=== PATIENT | female | born 1970 | race Caucasian/White ===

== ENCOUNTER → 2016-10-03 | Day surgery (SDC) | payer OTHER ==
[~2016-10-03] VITALS: Ht 165.1 cm; Wt 88.9 kg
[~2016-10-03] MED LIST: ALBUTEROL0.09 MG/A2 IH; ATIVAN2 MG PO; CELEXA40 MG PO; DAYPRO600 M1 PO; DELTASONE5 MG PO; DULER200 INH; DUONEB 3 MG/3 ML3 M1 INH; EFFEXOR XR150 MG PO; FLEXERIL10 MG PO; FLONASE ALLERG9.9 ML NS; HYCODAN 1.5 MG480 M1 PO; HYDROCODONE BIT1 T11 PO; KEFLEX250 MG PO; METICORTEN1 MG PO; MOTRIN800 MG PO; NEURONTIN100 MG PO; PREDNISONE50 MG PO; ROBAXIN750 MG PO; SINGULAIR10 MG PO; SYMBICORT1 AE1 IH; VIBRAMYCIN100 MG PO; VICODIN 500 MG-1 TAB PO; WELLBUTRIN XL300 MG PO; ZANTAC150 MG PO; ZOFRAN ODT4 MG SL
--- NOTE | ~2016-10-03 | O ---
[place], [place] OPERATIVE NOTE NAME: SAMMIE PINK [facility] #: [id number] UNIT #: [id number] ROOM: DOCTOR: MALAIKA WHITMORE MD BIRTHDATE: [birth year] DOS: 10/03/2016 PREOPERATIVE DIAGNOSES: Right shoulder and back soft tissue masses. POSTOPERATIVE DIAGNOSES: Right shoulder and back soft tissue masses. PROCEDURE: Excision of right shoulder and back soft tissue masses. SURGEON: Malaika Whitmore MD PROOFER: MS3. ANESTHESIA: Local (approximately 20 mL of 1% plain lidocaine). INDICATIONS: This is a 45-year-old lady with a history of an enlarging right shoulder and back masses, who is here for the above-mentioned procedure. The procedure and its complications were explained to the patient in detail preoperatively. Complications that were discussed included but were not limited to, bleeding, infection and recurrence. She agreed to proceed. DESCRIPTION OF PROCEDURE: After identifying the patient, the patient was brought to the operating suite and laid in the left lateral position. The parts were painted and draped in the usual sterile fashion. A time-out procedure was called. Incisions were marked and local anesthesia (1% plain lidocaine) was injected in the line of the incision. The right shoulder mass was dealt with first. An incision was made in the long access of the mass. The skin and the subcutaneous tissue were incised. The mass was grasped with the help of Allis forceps, and it was excised in its entirety and sent for histopathological diagnosis. The size of this mass was approximately 2 x 3 cm. Hemostasis was achieved with the help of electrocautery. Thereafter, the subcutaneous tissue was approximated with the help of 3-0 Vicryl in interrupted fashion and the skin edges were approximated with the help of 4-0 Vicryl in a subcuticular running fashion. A dressing was placed. Thereafter, the incision was marked in the region of the back mass and local anesthesia was infiltrated. An elliptical incision was made in the skin, and the subcutaneous tissue was incised in the line of the incision. The mass was grasped with the help of an Allis forceps, and it was then excised in its entirety and sent for histopathological diagnosis. Hemostasis was achieved. Thereafter, the subcutaneous tissue was approximated with the help of 3-0 Vicryl, and the skin edges were approximated with the help of 4-0 Vicryl in a subcuticular running fashion. Dressing was given. The patient tolerated the procedure well and was brought to the recovery room in stable fashion. Dr. Malaika Whitmore, the attending surgeon, was present throughout the operating case. [place], [place] OPERATIVE NOTE NAME: PINKSAMMIE D UNIT #: [id number] ROOM: DOCTOR: MALAIKA WHITMORE MD BIRTHDATE: [birth year] Malaika Whitmore MD CM:OPRECORD:OPERATIVE NOTE [id number] MALAIKA WHITMORE MD 10/03/16 1125 interface
== END | disposition home or self-care (01) ==
LOC: SDC 10-02 12:30
DX: D17.1 Benign lipomatous neoplasm of skin and subcutaneous tissue of trunk (principal); L72.0 Epidermal cyst; J44.9 Chronic obstructive pulmonary disease, unspecified; J45.909 Unspecified asthma, uncomplicated; F41.9 Anxiety disorder, unspecified; F32.9 Major depressive disorder, single episode, unspecified; M79.7 Fibromyalgia; Z86.14 Personal history of Methicillin resistant Staphylococcus aureus infection; F17.210 Nicotine dependence, cigarettes, uncomplicated

== ENCOUNTER → 2016-12-28 | Outpatient (CLI) | payer OTHER | END | disposition home or self-care (01) | LOC: RAD 12:34 | DX: M25.562 Pain in left knee (principal); M25.561 Pain in right knee ==

== ENCOUNTER → 2017-01-10 | Outpatient (CLI) | payer OTHER | END | disposition home or self-care (01) | LOC: US 15:55 | DX: M25.862 Other specified joint disorders, left knee (principal); R22.42 Localized swelling, mass and lump, left lower limb ==

== ENCOUNTER → 2017-02-18 | Outpatient (CLI) | payer OTHER | END | disposition home or self-care (01) | LOC: MRI 08:00 | DX: M79.9 Soft tissue disorder, unspecified (principal); M17.12 Unilateral primary osteoarthritis, left knee; M25.862 Other specified joint disorders, left knee; Z85.828 Personal history of other malignant neoplasm of skin ==

== ENCOUNTER 2017-05-13 20:03 | Emergency (ER) | payer OTHER ==
[~2017-05-13] VITALS: Ht 165.1 cm; Wt 89.8 kg
--- NOTE | ~2017-05-13 | EKG ---
[place], [place] ELECTROCARDIOGRAM REPORT NAME: SAMMIE PINK UNIT #: [id number] ROOM: DOCTOR: RAE HARRIS MD BIRTHDATE: [birth year] DOS: 05/13/2017 TIME: 2006 hours. Sinus tachycardia at 110 beats per minute. Possible old anterior wall myocardial infarction. An abnormal ECG. The abnormality may be due to lead misplacement. No previous tracing is available for comparison. RAE HARRIS MD CM:EKGRPT:ELECTROCARDIOGRAM REPORT [id number] RAE HARRIS MD
--- NOTE | ~2017-05-13 | EKG ---
[place], [place] ELECTROCARDIOGRAM REPORT NAME: SAMMIE PINK UNIT #: [id number] ROOM: DOCTOR: RAE HARRIS MD BIRTHDATE: [birth year] DOS: 05/13/2017 TIME: 2208 hours. Normal sinus rhythm at 95 beats per minute. The tracing is within normal limits. When compared with an ECG done a couple of hours earlier QRS progression appears to be normal, indicating the first ECG had misplaced leads. RAE HARRIS MD CM:EKGRPT:ELECTROCARDIOGRAM REPORT [id number] RAE HARRIS MD
[2017-05-13 20:21] LABS: BASO # 0.1 10*3/uL (0.0-0.1); BASO % 0.9 % (0.0-1.0); EOS # 0.3 10*3/uL (0.0-0.4); EOS % 2.3 % (1.0-4.0); HEMATOCRIT 45.9 % (37.0-47.0); HEMOGLOBIN 15.9 g/dl (12.0-16.0); LYMPH # 3.2 10*3/uL (1.3-4.4); LYMPH % 28.7 % (27.0-41.0); MEAN CELL VOLUME 93.7 fl (81.0-99.0); MEAN CORPUSCULAR HGB 32.4 pg (27.0-31.0); MEAN CORPUSCULAR HGB CONC 34.6 g/dl (33.0-37.0); MEAN PLATELET VOLUME 8.5 fl (9.6-12.3); MONO # 0.7 10*3/uL (0.1-1.0); MONO % 6.4 % (3.0-9.0); NEUT # 6.9 10*3/uL (2.3-7.9); NEUT % 61.4 % (47.0-73.0); PLATELET COUNT AUTOMATED 449 10*3/uL (130-400); RED CELL DISTRI WIDTH 12.4 % (0-14.5); WHITE BLOOD COUNT 11.2 10*3/uL (4.8-10.8)
[2017-05-13 20:34] LABS: ACT PARTIAL THROMBO TIME 25.1 SECONDS (20.8-31.5); INTERNATIONAL NORM RATIO 0.9 (2.0-3.5)
[2017-05-13 20:37] LABS: ALBUMIN 3.9 gm/dl (3.1-4.5); ALKALINE PHOSPHATASE 104 U/L (45-117); BUN 15 mg/dl (7-24); CHLORIDE 102 mmol/L (98-107); CREATININE 0.92 mg/dL (0.55-1.02); MAGNESIUM 2.3 mg/dL (1.5-2.1); SGOT/AST 25 IU/L (3-35); SGPT/ALT 27 U/L (12-78); SODIUM 139 mmol/L (136-145); TOTAL PROTEIN 7.9 gm/dL (6.4-8.2)
[2017-05-13 20:38] LABS: TROPONIN I < 0.015 ng/ml (<0.045)
[2017-05-13 20:44] LABS: URINE AMPHETAMINES < 1000 (1000ng/ml); URINE BARBITURATES < 200 (200ng/ml); URINE BENZODIAZEPINES < 200 (200ng/ml); URINE CANNABINOIDS (THC) < 50 (50ng/ml); URINE COCAINE < 300 (300ng/ml); URINE METHADONE < 300 (300ng/ml); URINE OPIATES > 300 (300ng/ml)
[2017-05-13 20:45] LABS: URINE PHENCYCLIDINE < 25 (25ng/ml)
== END 2017-05-13 23:34 | disposition home or self-care (01) ==
LOC: ED 20:03
PROVIDERS: Emergency Medicine Emergency Medical Services
DX: R07.89 Other chest pain (principal); R00.2 Palpitations; J44.9 Chronic obstructive pulmonary disease, unspecified; M79.7 Fibromyalgia; Z98.890 Other specified postprocedural states; Z90.49 Acquired absence of other specified parts of digestive tract

== ENCOUNTER → 2017-05-22 | Outpatient (CLI) | payer OTHER ==
--- NOTE | ~2017-05-22 | HM ---
[place], [place] HOLTER MONITOR REPORT [facility] [id number] UNIT #: [id number] ROOM: DOCTOR: LEESA BENJAMIN MD BIRTHDATE: [birth year] DOS: 05/22/2017 The study was recorded on 05/22/2017, the recording was analyzed on 05/23/2017, interpreted on 05/23/2017, and dictated on 05/23/2017. INDICATIONS: Tachycardia, chest discomfort. FINDINGS: The patient was studied for 24 hours utilizing a Holter monitor. Underlying rhythm was normal sinus with periods of sinus tachycardia. The average heart rate was 96. Heart rate in sinus rhythm varied from 67-141 beats per minute. No premature ventricular contractions were recorded. There was no ventricular tachycardia. Rare premature atrial contractions were recorded. A single 7 beat run of SVT at a rate of 128 was seen. There were no prolonged pauses. The patient submitted a diary indicated that she had shortness of breath and a little bit of chest pain on 2 occasions. She was in sinus tachycardia with a rate of about 110 at those times. No arrhythmias were documented. It also indicated that she was dizzy and fell hitting her head on 4 occasions. During these events, she was in sinus rhythm with a rate of about 90, again no arrhythmias were recorded. IMPRESSION: 1. Normal sinus rhythm and sinus tachycardia. Average heart rate is relatively high at 96 beats per minute. 2. A single 7 beat run of SVT was recorded, but had no symptoms. The patient experienced this at 6:49 a.m. 3. The patient did not have any significant arrhythmias during symptoms of chest discomfort, dyspnea, lightheadedness or falling. LEESA BENJAMIN MD CM:HOLTER:HOLTER MONITOR REPORT [id number] LEESA BENJAMIN MD
== END | disposition home or self-care (01) ==
LOC: CARD 09:30
DX: R00.0 Tachycardia, unspecified (principal); R00.2 Palpitations

== ENCOUNTER → 2017-06-27 | Outpatient (CLI) | payer OTHER ==
[~2017-06-27] MED LIST changes: +ATIVAN1 MG PO; +BACLOFEN20 M1 PO; +CLARITIN10 MG PO; +INCRUSE ELLI62.5 MCG INH; +OMEPRAZOLE40 MG PO; +SINGULAIR10 M1 PO; +VISTARIL25 MG PO
--- NOTE | ~2017-06-27 | ST ---
[place], [place] EXERCISE STRESS TEST REPORT [id number] UNIT #: [id number] ROOM: DOCTOR: QUIANA NUÑEZ MD BIRTHDATE: [birth year] DOS: 06/27/2017 INDICATION: Symptomatic palpitation and chest pain. PROCEDURE: The patient was exercised on treadmill using Sai protocol, the patient exercised for 9 minutes reaching 85% of her maximum predicted heart rate. Maximum workload was 11 mets. Test was terminated due to achieving target heart rate. No complaint of chest pain, chest pressure, heaviness or tightness. BLOOD PRESSURE RESPONSE: The resting blood pressure 122/80 with ending blood pressure 170/68. ELECTROCARDIOGRAM INTERPRETATION: Resting electrocardiogram showed normal sinus rhythm. There is poor R progression. At the peak of the stress test, there was no evidence of any significant ST or T-wave changes suggestive of myocardial ischemia. No arrhythmias were noted. SUMMARY: 1. Adequate stress test with good functional capacity. 2. Negative treadmill stress test for stress induced myocardial ischemia. 3. No arrhythmias were noted. 4. Nuclear images will be reported separately. QUIANA NUÑEZ MD CM:STRESS:EXERCISE STRESS TEST REPORT [id number] QUIANA NUÑEZ MD
--- NOTE | 2017-06-27 10:05 | NUR ---
INFORMED SIGNED CONSENT OBTAINED FOR CGXT WITH DR NUÑEZ. RESTING EKG NSR HR 72 BP 122/80 IN SUPINE POSTION, STANDING HR 78 BP 126/78. PT COMPLETED 9:00 OF A GUZMAN PROTOCOL WITH COMPLETION OF STAGE III. PT REACHED A PEAK HR OF 151 WHICH REPRESENTS 85% OF PREDICTED MAXIMUM AND A PEAK BP OF 170/68. NO ARRHYTHMIAS NOTED. NON DIAGNOSITC ST CHANGES SEEN. PT C/O HEAD PRESSURE AND SOB. LAST RECOVERY HR 104 BP 140/72. PT IN STABLE CONDITION, AWAITING NUCLEAR IMAGES.
== END | disposition home or self-care (01) ==
LOC: CARD 06-20 08:30
DX: I49.9 Cardiac arrhythmia, unspecified (principal); I47.1 Supraventricular tachycardia; R94.31 Abnormal electrocardiogram [ECG] [EKG]; R42 Dizziness and giddiness

== ENCOUNTER → 2017-10-09 | Outpatient (CLI) | payer OTHER | END | disposition home or self-care (01) | LOC: US 10-08 13:00 → MAMMO 13:56 | DX: Z12.39 Encounter for other screening for malignant neoplasm of breast (principal); N92.6 Irregular menstruation, unspecified ==

== ENCOUNTER → 2017-10-15 | Outpatient (CLI) | payer OTHER | END | disposition home or self-care (01) | LOC: ORTHO 01:25 | DX: M06.861 Other specified rheumatoid arthritis, right knee (principal) ==

== ENCOUNTER → 2017-10-30 | Outpatient (CLI) | payer OTHER ==
[~2017-10-30] MED LIST changes: +CYCLOBENZAPRINE5 M3 PO
[2017-10-30 11:12] LABS: BASO # 0.1 10*3/uL (0.0-0.1); EOS # 0.2 10*3/uL (0.0-0.4); EOS % 2.5 % (1.0-4.0); HEMATOCRIT 42.8 % (37.0-47.0); HEMOGLOBIN 14.6 g/dl (12.0-16.0); LYMPH # 2.5 10*3/uL (1.3-4.4); LYMPH % 32.5 % (27.0-41.0); MEAN CELL VOLUME 94.1 fl (81.0-99.0); MEAN CORPUSCULAR HGB 32.1 pg (27.0-31.0); MEAN CORPUSCULAR HGB CONC 34.1 g/dl (33.0-37.0); MEAN PLATELET VOLUME 8.6 fl (9.6-12.3); MONO # 0.6 10*3/uL (0.1-1.0); MONO % 7.1 % (3.0-9.0); NEUT # 4.4 10*3/uL (2.3-7.9); NEUT % 56.8 % (47.0-73.0); PLATELET COUNT AUTOMATED 374 10*3/uL (130-400); RED BLOOD COUNT 4.55 10*6/uL (4.10-5.10); RED CELL DISTRI WIDTH 12.5 % (0-14.5); WHITE BLOOD COUNT 7.7 10*3/uL (4.8-10.8)
[2017-10-30 11:20] LABS: BILIRUBIN NEGATIVE (NEGATIVE); BLOOD NEGATIVE (NEGATIVE); CLARITY CLEAR (CLEAR); COLOR YELLOW (YELLOW); GLUCOSE NEGATIVE (NEGATIVE); KETONE NEGATIVE (NEGATIVE); LEUKO ESTERASE NEGATIVE (NEGATIVE); NITRITE NEGATIVE (NEGATIVE); PH 5.5 (5.0-9.0); UROBILINOGEN 0.2 E.U./dl (0.2-1.0)
[2017-10-30 11:28] LABS: BACTERIA 1+; WBC 0-2 wbc/hpf (0-5)
[2017-10-30 11:37] LABS: BUN 14 mg/dl (7-24); CHLORIDE 107 mmol/L (98-107); CREATININE 0.94 mg/dL (0.55-1.02); POTASSIUM 4.1 mmol/L (3.5-5.1); SODIUM 139 mmol/L (136-145)
== END | disposition home or self-care (01) ==
LOC: LAB 09:37
PROVIDERS: Orthopaedic Surgery
DX: S81.012A Laceration without foreign body, left knee, initial encounter (principal); M22.42 Chondromalacia patellae, left knee; X58.XXXA Exposure to other specified factors, initial encounter; Y92.89 Other specified places as the place of occurrence of the external cause; Y93.89 Activity, other specified; Y99.8 Other external cause status

== ENCOUNTER → 2017-11-06 | Day surgery (SDC) | payer OTHER ==
[~2017-11-06] VITALS: Ht 165.1 cm; Wt 89.8 kg
[2017-11-06] VITALS (7 sets, daily range): BP systolic 103–132; BP diastolic 44–78
[~2017-11-06] MED LIST changes: +Percocet 325 MG1 TAB PO; +ZOFRAN4 MG PO
== END | disposition home or self-care (01) ==
LOC: SDC 10-30 09:30
DX: S83.242A Other tear of medial meniscus, current injury, left knee, initial encounter (principal); M94.262 Chondromalacia, left knee; F17.210 Nicotine dependence, cigarettes, uncomplicated; J44.9 Chronic obstructive pulmonary disease, unspecified; F41.9 Anxiety disorder, unspecified; F32.9 Major depressive disorder, single episode, unspecified; Z86.14 Personal history of Methicillin resistant Staphylococcus aureus infection; Z90.49 Acquired absence of other specified parts of digestive tract; Z82.49 Family history of ischemic heart disease and other diseases of the circulatory system; X58.XXXA Exposure to other specified factors, initial encounter; Y93.89 Activity, other specified; Y92.89 Other specified places as the place of occurrence of the external cause; Y99.8 Other external cause status

== ENCOUNTER → 2017-12-24 | Outpatient (CLI) | payer OTHER | END | disposition home or self-care (01) | LOC: RAD 15:32 | DX: M79.672 Pain in left foot (principal) ==

== ENCOUNTER → 2018-07-20 | Outpatient (CLI) | payer OTHER ==
[~2018-07-20] MED LIST changes: +ANAPROX DS550 MG PO
== END | disposition home or self-care (01) ==
LOC: US 15:00
DX: R14.0 Abdominal distension (gaseous) (principal)

== ENCOUNTER → 2018-08-24 | Outpatient (CLI) | payer OTHER | END | disposition home or self-care (01) | LOC: MRI 13:56 | DX: S83.206A Unspecified tear of unspecified meniscus, current injury, right knee, initial encounter (principal); M25.861 Other specified joint disorders, right knee; R60.0 Localized edema; X58.XXXA Exposure to other specified factors, initial encounter; Y93.89 Activity, other specified; Y92.89 Other specified places as the place of occurrence of the external cause; Y99.8 Other external cause status ==

== ENCOUNTER → 2018-10-29 | Outpatient (CLI) | payer OTHER | END | disposition home or self-care (01) | LOC: CT 10:00 | DX: J34.1 Cyst and mucocele of nose and nasal sinus (principal) ==

== ENCOUNTER → 2019-07-23 | Outpatient (CLI) | payer OTHER ==
[2019-07-23 15:00] LABS: BASO # 0.1 10*3/uL (0.0-0.1); BASO % 1.2 % (0.0-1.0); EOS # 0.2 10*3/uL (0.0-0.4); HEMATOCRIT 47.5 % (37.0-47.0); HEMOGLOBIN 15.9 g/dl (12.0-16.0); LYMPH # 2.6 10*3/uL (1.3-4.4); LYMPH % 28.5 % (27.0-41.0); MEAN CELL VOLUME 97.1 fl (81.0-99.0); MEAN CORPUSCULAR HGB 32.5 pg (27.0-31.0); MEAN CORPUSCULAR HGB CONC 33.5 g/dl (33.0-37.0); MEAN PLATELET VOLUME 9.1 fl (9.6-12.3); MONO # 0.5 10*3/uL (0.1-1.0); MONO % 5.6 % (3.0-9.0); NEUT # 5.6 10*3/uL (2.3-7.9); NEUT % 62.5 % (47.0-73.0); PLATELET COUNT AUTOMATED 402 10*3/uL (130-400); RED BLOOD COUNT 4.89 10*6/uL (4.10-5.10); RED CELL DISTRI WIDTH 13.5 % (0-14.5)
== END | disposition home or self-care (01) ==
LOC: ORTHO 00:42
PROVIDERS: Orthopaedic Surgery
DX: M25.562 Pain in left knee (principal)

== ENCOUNTER → 2019-08-19 | Outpatient (CLI) | payer OTHER | END | disposition home or self-care (01) | LOC: US 13:00 | DX: M71.21 Synovial cyst of popliteal space [Baker], right knee (principal) ==

== ENCOUNTER → 2020-04-17 | Outpatient (CLI) | payer OTHER | END | disposition home or self-care (01) | LOC: MAMMO 10:45 | PROVIDERS: ATTEND Nurse Practitioner Primary Care | DX: Z12.31 Encounter for screening mammogram for malignant neoplasm of breast (principal) ==

== ENCOUNTER → 2020-04-27 | Outpatient (CLI) | payer OTHER | END | disposition home or self-care (01) | LOC: CP 07:06 | PROVIDERS: ATTEND Nurse Practitioner Primary Care | DX: J44.9 Chronic obstructive pulmonary disease, unspecified (principal) ==

== ENCOUNTER → 2020-08-23 | Outpatient (CLI) | payer OTHER ==
[2020-08-23 11:27] LABS: BASO # 0.1 10*3/uL (0.0-0.1); BASO % 1.2 % (0.0-1.0); EOS # 0.3 10*3/uL (0.0-0.4); EOS % 3.3 % (1.0-4.0); HEMATOCRIT 47.6 % (37.0-47.0); LYMPH # 2.7 10*3/uL (1.3-4.4); LYMPH % 32.9 % (27.0-41.0); MEAN CORPUSCULAR HGB 31.3 pg (27.0-31.0); MEAN PLATELET VOLUME 8.9 fl (9.6-12.3); MONO # 0.6 10*3/uL (0.1-1.0); MONO % 7.9 % (3.0-9.0); NEUT # 4.4 10*3/uL (2.3-7.9); NEUT % 54.6 % (47.0-73.0); PLATELET COUNT AUTOMATED 354 10*3/uL (130-400); RED BLOOD COUNT 5.01 10*6/uL (4.10-5.10); RED CELL DISTRI WIDTH 14.9 % (0-14.5); WHITE BLOOD COUNT 8.1 10*3/uL (4.8-10.8)
[2020-08-23 11:32] LABS: URINE AMPHETAMINES < 1000 (1000ng/ml); URINE BARBITURATES < 200 (200ng/ml); URINE BENZODIAZEPINES < 200 (200ng/ml); URINE CANNABINOIDS (THC) < 50 (50ng/ml); URINE COCAINE < 300 (300ng/ml); URINE METHADONE < 300 (300ng/ml); URINE OPIATES < 300 (300ng/ml)
[2020-08-23 11:34] LABS: URINE PHENCYCLIDINE < 25 (25ng/ml)
[2020-08-23 11:53] LABS: ALBUMIN 3.7 gm/dl (3.1-4.5); ALKALINE PHOSPHATASE 80 U/L (45-117); BUN 16 mg/dl (7-24); CHLORIDE 108 mmol/L (98-107); CREATININE 0.83 mg/dL (0.55-1.02); POTASSIUM 4.1 mmol/L (3.5-5.1); SGOT/AST 12 IU/L (3-35); SGPT/ALT 11 U/L (12-78); SODIUM 139 mmol/L (136-145); TOTAL PROTEIN 6.8 gm/dL (6.4-8.2)
== END | disposition home or self-care (01) ==
LOC: LAB 11:00
PROVIDERS: ATTEND Registered Nurse Psychiatric/Mental Health
DX: F41.0 Panic disorder [episodic paroxysmal anxiety] (principal)

== ENCOUNTER → 2020-12-01 | Outpatient (CLI) | payer OTHER | END | disposition home or self-care (01) | LOC: RAD 11:28 | PROVIDERS: ATTEND Nurse Practitioner Primary Care | DX: J40 Bronchitis, not specified as acute or chronic (principal) ==

== ENCOUNTER → 2020-12-28 | Outpatient (CLI) | payer OTHER | END | disposition home or self-care (01) | LOC: RAD 10:23 | PROVIDERS: ATTEND Nurse Practitioner Primary Care | DX: R91.8 Other nonspecific abnormal finding of lung field (principal); J44.1 Chronic obstructive pulmonary disease with (acute) exacerbation ==

== ENCOUNTER → 2021-06-11 | Outpatient (CLI) | payer OTHER ==
[2021-06-11 10:59] LABS: BASO # 0.1 10*3/uL (0.0-0.1); EOS # 0.1 10*3/uL (0.0-0.4); EOS % 1.3 % (1.0-4.0); HEMATOCRIT 48.9 % (37.0-47.0); LYMPH # 1.9 10*3/uL (1.3-4.4); LYMPH % 19.1 % (27.0-41.0); MEAN CELL VOLUME 95.3 fl (81.0-99.0); MEAN CORPUSCULAR HGB 32.7 pg (27.0-31.0); MEAN CORPUSCULAR HGB CONC 34.4 g/dl (33.0-37.0); MEAN PLATELET VOLUME 8.3 fl (9.6-12.3); MONO # 0.6 10*3/uL (0.1-1.0); MONO % 5.9 % (3.0-9.0); NEUT % 72.4 % (47.0-73.0); PLATELET COUNT AUTOMATED 397 10*3/uL (130-400); RED BLOOD COUNT 5.13 10*6/uL (4.10-5.10); RED CELL DISTRI WIDTH 13.3 % (0-14.5); WHITE BLOOD COUNT 9.7 10*3/uL (4.8-10.8)
[2021-06-11 11:14] LABS: ALBUMIN 4.1 gm/dl (3.1-4.5); ALKALINE PHOSPHATASE 66 U/L (45-117); BUN 11 mg/dl (7-24); CHLORIDE 109 mmol/L (98-107); CHOLESTEROL 140 mg/dL (<200); CREATININE 0.78 mg/dL (0.55-1.02); LDL CHOLESTEROL 79 mg/dL (9-159); POTASSIUM 4.3 mmol/L (3.5-5.1); SGOT/AST 13 IU/L (3-35); SGPT/ALT 16 U/L (12-78); SODIUM 139 mmol/L (136-145); TOTAL PROTEIN 7.3 gm/dL (6.4-8.2); TRIGLYCERIDES 53 mg/dl (<150)
[2021-06-11 11:21] LABS: THYROID STIM HORMONE (HS) 0.895 uIU/ml (0.358-4.75)
== END | disposition home or self-care (01) ==
LOC: LAB 10:36
PROVIDERS: ATTEND Registered Nurse Psychiatric/Mental Health
DX: F31.9 Bipolar disorder, unspecified (principal)

== ENCOUNTER → 2022-01-24 | Outpatient (CLI) | payer OTHER ==
[2022-01-24 12:21] LABS: BUN 7 mg/dl (7-24)
== END | disposition home or self-care (01) ==
LOC: LAB 11:30
PROVIDERS: ATTEND Physician Assistant Medical
DX: G20 Parkinson's disease (principal); R47.1 Dysarthria and anarthria

== ENCOUNTER → 2022-02-07 | Outpatient (CLI) | payer OTHER ==
[2022-02-07 11:43] LABS: BASO # 0.1 10*3/uL (0.0-0.1); BASO % 1.3 % (0.0-1.0); EOS # 0.2 10*3/uL (0.0-0.4); EOS % 2.4 % (1.0-4.0); HEMATOCRIT 45.7 % (37.0-47.0); LYMPH # 2.4 10*3/uL (1.3-4.4); MEAN CELL VOLUME 97.2 fl (81.0-99.0); MEAN CORPUSCULAR HGB 33.4 pg (27.0-31.0); MEAN CORPUSCULAR HGB CONC 34.4 g/dl (33.0-37.0); MEAN PLATELET VOLUME 8.9 fl (9.6-12.3); MONO # 0.4 10*3/uL (0.1-1.0); MONO % 5.3 % (3.0-9.0); NEUT # 4.1 10*3/uL (2.3-7.9); NEUT % 57.9 % (47.0-73.0); PLATELET COUNT AUTOMATED 300 10*3/uL (130-400); RED CELL DISTRI WIDTH 12.6 % (0-14.5); WHITE BLOOD COUNT 7.1 10*3/uL (4.8-10.8)
[2022-02-07 12:02] LABS: BUN 8 mg/dl (7-24); CHLORIDE 112 mmol/L (98-107); CHOLESTEROL 136 mg/dL (<200); CREATININE 0.78 mg/dL (0.55-1.02); POTASSIUM 4.1 mmol/L (3.5-5.1); SGOT/AST 15 IU/L (3-35); SGPT/ALT 7 U/L (12-78); SODIUM 142 mmol/L (136-145); TOTAL PROTEIN 6.7 gm/dL (6.4-8.2); TRIGLYCERIDES 72 mg/dl (<150)
[2022-02-07 12:10] LABS: ALKALINE PHOSPHATASE 57 U/L (45-117); LDL CHOLESTEROL 70 mg/dL (9-159); THYROID STIM HORMONE (HS) 0.696 uIU/ml (0.358-4.75)
== END | disposition home or self-care (01) ==
LOC: LAB 11:10
PROVIDERS: ATTEND Registered Nurse Psychiatric/Mental Health
DX: F11.20 Opioid dependence, uncomplicated (principal)

== ENCOUNTER → 2022-02-25 | Outpatient (CLI) | payer OTHER | END | disposition home or self-care (01) | LOC: MRI 00:37 | PROVIDERS: ATTEND Physician Assistant Medical | DX: G20 Parkinson's disease (principal) ==

== ENCOUNTER → 2022-02-26 | Outpatient (CLI) | payer OTHER | LOC: LAB 09:37 | PROVIDERS: ATTEND Registered Nurse Psychiatric/Mental Health | DX: Z79.899 Other long term (current) drug therapy (principal) ==

== ENCOUNTER → 2022-03-12 | Outpatient (CLI) | payer OTHER ==
[2022-03-12 10:31] LABS: BUN 9 mg/dl (7-24); CHLORIDE 111 mmol/L (98-107); CREATININE 0.71 mg/dL (0.55-1.02); POTASSIUM 3.7 mmol/L (3.5-5.1); SODIUM 142 mmol/L (136-145)
== END | disposition home or self-care (01) ==
LOC: LAB 09:58
PROVIDERS: ATTEND Registered Nurse Psychiatric/Mental Health
DX: Z79.899 Other long term (current) drug therapy (principal)

== ENCOUNTER → 2022-04-08 | Outpatient (CLI) | payer OTHER | END | disposition home or self-care (01) | LOC: MAMMO 08:57 | PROVIDERS: ATTEND Physician Assistant | DX: Z12.31 Encounter for screening mammogram for malignant neoplasm of breast (principal) ==

== ENCOUNTER → 2022-05-06 | Day surgery (SDC) | payer OTHER ==
[~2022-05-06] VITALS: Ht 165.1 cm; Wt 57.6 kg
[~2022-05-06] MED LIST changes: +FLUCONAZOLE100 MG PO; +LAMICTAL200 MG PO; +LITHIUM CARBON300 M1 PO; +PROTONIX40 MG PO; +TRAZODONE50 MG PO
[2022-05-06 10:23] VITALS: BP 118/70
[2022-05-06 11:47] VITALS: BP 104/65
[2022-05-06 12:02] VITALS: BP 119/72
[2022-05-06 12:09] VITALS: BP 108/62
== END | disposition home or self-care (01) ==
LOC: SDC 05-02 09:30
PROVIDERS: ATTEND Surgery
DX: Z12.11 Encounter for screening for malignant neoplasm of colon (principal); D12.0 Benign neoplasm of cecum; D12.8 Benign neoplasm of rectum; K29.50 Unspecified chronic gastritis without bleeding; J44.9 Chronic obstructive pulmonary disease, unspecified; F41.9 Anxiety disorder, unspecified; F32.9 Major depressive disorder, single episode, unspecified; F17.210 Nicotine dependence, cigarettes, uncomplicated; M79.7 Fibromyalgia; Z79.899 Other long term (current) drug therapy

== ENCOUNTER 2022-05-10 19:39 | Emergency (ER) | payer OTHER ==
[~2022-05-10] VITALS: Ht 165.1 cm; Wt 57.6 kg
[2022-05-10] MEDS ORDERED: NAPROXEN250 MG PO (20:26)
== END 2022-05-10 20:30 | disposition home or self-care (01) ==
LOC: ED 19:39
DX: M17.12 Unilateral primary osteoarthritis, left knee (principal); Z79.899 Other long term (current) drug therapy; Z98.890 Other specified postprocedural states

== ENCOUNTER → 2022-05-17 | Outpatient (CLI) | payer OTHER ==
[~2022-05-17] MED LIST changes: +NAPROXEN250 MG PO
== END | disposition home or self-care (01) ==
LOC: CT 10:00
PROVIDERS: ATTEND Physician Assistant
DX: K21.9 Gastro-esophageal reflux disease without esophagitis (principal); R11.0 Nausea; R14.0 Abdominal distension (gaseous)

== ENCOUNTER → 2022-05-29 | Outpatient (CLI) | payer OTHER | LOC: MRI 01:05 | PROVIDERS: ATTEND Physician Assistant Medical | DX: M50.31 Other cervical disc degeneration, high cervical region (principal); M48.02 Spinal stenosis, cervical region; M25.78 Osteophyte, vertebrae; M47.812 Spondylosis without myelopathy or radiculopathy, cervical region; Z98.890 Other specified postprocedural states; R29.2 Abnormal reflex ==

== ENCOUNTER → 2022-05-31 | Outpatient (CLI) | payer OTHER | END | disposition home or self-care (01) | LOC: NM 05-27 07:00 | PROVIDERS: ATTEND Surgery | DX: K21.9 Gastro-esophageal reflux disease without esophagitis (principal); Z90.49 Acquired absence of other specified parts of digestive tract ==

== ENCOUNTER → 2022-06-10 | Outpatient (CLI) | payer OTHER | END | disposition home or self-care (01) | LOC: MRI 00:20 | PROVIDERS: ATTEND Orthopaedic Surgery | DX: S83.242A Other tear of medial meniscus, current injury, left knee, initial encounter (principal); S83.412A Sprain of medial collateral ligament of left knee, initial encounter; M17.12 Unilateral primary osteoarthritis, left knee; M25.462 Effusion, left knee; X58.XXXA Exposure to other specified factors, initial encounter; Y93.89 Activity, other specified; Y92.89 Other specified places as the place of occurrence of the external cause; Y99.8 Other external cause status ==

== ENCOUNTER → 2022-08-02 | Outpatient (CLI) | payer OTHER ==
[2022-08-02 13:07] LABS: BASO # 0.1 10*3/uL (0.0-0.1); BASO % 1.2 % (0.0-1.0); EOS # 0.2 10*3/uL (0.0-0.4); EOS % 2.1 % (1.0-4.0); HEMATOCRIT 45.1 % (37.0-47.0); LYMPH # 1.9 10*3/uL (1.3-4.4); LYMPH % 22.7 % (27.0-41.0); MEAN CELL VOLUME 99.8 fl (81.0-99.0); MEAN PLATELET VOLUME 8.1 fl (9.6-12.3); MONO # 0.3 10*3/uL (0.1-1.0); NEUT # 5.7 10*3/uL (2.3-7.9); NEUT % 69.8 % (47.0-73.0); PLATELET COUNT AUTOMATED 528 10*3/uL (130-400); RED BLOOD COUNT 4.52 10*6/uL (4.10-5.10); WHITE BLOOD COUNT 8.2 10*3/uL (4.8-10.8)
[2022-08-02 13:27] LABS: ALKALINE PHOSPHATASE 82 U/L (46-116); BUN 7 mg/dl (9-23); CHLORIDE 106 mmol/L (98-107); SGPT/ALT 14 U/L (10-49); THYROID STIM HORMONE (HS) 1.012 uIU/ml (0.550-4.780); TOTAL PROTEIN 7.1 gm/dL (6.0-8.0)
== END | disposition home or self-care (01) ==
LOC: LAB 12:43
PROVIDERS: ATTEND Registered Nurse Psychiatric/Mental Health
DX: Z11.59 Encounter for screening for other viral diseases (principal); R53.83 Other fatigue; Z13.0 Encounter for screening for diseases of the blood and blood-forming organs and certain disorders involving the immune mechanism; F11.20 Opioid dependence, uncomplicated; Z72.89 Other problems related to lifestyle

== ENCOUNTER → 2022-08-08 | Outpatient (CLI) | payer OTHER ==
[2022-08-08 10:13] LABS: HEMATOCRIT 48.3 % (37.0-47.0); MEAN CORPUSCULAR HGB 32.5 pg (27.0-31.0); MEAN CORPUSCULAR HGB CONC 32.5 g/dl (33.0-37.0); MEAN PLATELET VOLUME 8.2 fl (9.6-12.3); PLATELET COUNT AUTOMATED 482 10*3/uL (130-400); RED BLOOD COUNT 4.83 10*6/uL (4.10-5.10); RED CELL DISTRI WIDTH 12.9 % (0-14.5)
[2022-08-08 10:34] LABS: ALKALINE PHOSPHATASE 76 U/L (46-116); BUN 16 mg/dl (9-23); CHLORIDE 105 mmol/L (98-107); POTASSIUM 4.2 mmol/L (3.4-5.1); TOTAL PROTEIN 7.3 gm/dL (6.0-8.0)
[2022-08-08 10:38] LABS: SGPT/ALT < 7 U/L (10-49)
[2022-08-08 10:40] LABS: BASOPHILS 1 % (0-1); BURR CELLS FEW; PLATELET SUFFICIENCY HIGH (NORMAL); TOTAL CELLS COUNTED 100 #CELLS; VACUOLATION OF NEUTROPHILS SLIGHT
== END | disposition home or self-care (01) ==
LOC: LAB 09:55
PROVIDERS: ATTEND Internal Medicine
DX: D47.3 Essential (hemorrhagic) thrombocythemia (principal)

== ENCOUNTER → 2022-08-14 | Outpatient (CLI) | payer OTHER | END | disposition home or self-care (01) | LOC: ORTHO 04:13 | PROVIDERS: ATTEND Orthopaedic Surgery | DX: M25.551 Pain in right hip (principal) ==

== ENCOUNTER → 2022-09-17 | Outpatient (CLI) | payer OTHER ==
[2022-09-17 11:50] LABS: BASO # 0.1 10*3/uL (0.0-0.1); BASO % 1.5 % (0.0-1.0); EOS # 0.3 10*3/uL (0.0-0.4); EOS % 3.3 % (1.0-4.0); HEMATOCRIT 49.4 % (37.0-47.0); LYMPH # 2.2 10*3/uL (1.3-4.4); LYMPH % 29.8 % (27.0-41.0); MEAN PLATELET VOLUME 8.3 fl (9.6-12.3); MONO # 0.4 10*3/uL (0.1-1.0); MONO % 4.9 % (3.0-9.0); NEUT # 4.5 10*3/uL (2.3-7.9); NEUT % 60.2 % (47.0-73.0); PLATELET COUNT AUTOMATED 396 10*3/uL (130-400); RED BLOOD COUNT 4.94 10*6/uL (4.10-5.10); RED CELL DISTRI WIDTH 12.8 % (0-14.5); WHITE BLOOD COUNT 7.5 10*3/uL (4.8-10.8)
== END | disposition home or self-care (01) ==
LOC: LAB 05:37 → US 08:30 → LAB 08:30
PROVIDERS: Internal Medicine; ATTEND Nurse Practitioner Women's Health
DX: D75.1 Secondary polycythemia (principal); D75.839 Thrombocytosis, unspecified; D75.89 Other specified diseases of blood and blood-forming organs; F17.200 Nicotine dependence, unspecified, uncomplicated

== ENCOUNTER → 2022-10-11 | Outpatient (CLI) | payer OTHER | END | disposition home or self-care (01) | LOC: TELEHEALTH 01:11 | PROVIDERS: ATTEND Internal Medicine | DX: D75.1 Secondary polycythemia (principal); D75.839 Thrombocytosis, unspecified; D75.89 Other specified diseases of blood and blood-forming organs; J44.9 Chronic obstructive pulmonary disease, unspecified; F41.9 Anxiety disorder, unspecified; F32.A Depression, unspecified; G20 Parkinson's disease; Z79.899 Other long term (current) drug therapy ==

== ENCOUNTER → 2022-10-14 | Outpatient (CLI) | payer OTHER ==
[2022-10-14 11:51] LABS: BUN 15 mg/dl (9-23); CHLORIDE 107 mmol/L (98-107); POTASSIUM 4.1 mmol/L (3.4-5.1)
== END | disposition home or self-care (01) ==
LOC: LAB 11:02
PROVIDERS: ATTEND Internal Medicine
DX: D75.839 Thrombocytosis, unspecified (principal); D75.1 Secondary polycythemia

== ENCOUNTER → 2022-11-08 | Outpatient (CLI) | payer OTHER | END | disposition home or self-care (01) | LOC: TELEHEALTH 00:18 | PROVIDERS: ATTEND Internal Medicine | DX: D75.1 Secondary polycythemia (principal); D75.89 Other specified diseases of blood and blood-forming organs; D75.839 Thrombocytosis, unspecified; J96.11 Chronic respiratory failure with hypoxia; F17.200 Nicotine dependence, unspecified, uncomplicated; J44.9 Chronic obstructive pulmonary disease, unspecified; F41.9 Anxiety disorder, unspecified; F32.A Depression, unspecified; Z99.81 Dependence on supplemental oxygen; Z79.899 Other long term (current) drug therapy ==

== ENCOUNTER → 2023-02-04 | Outpatient (CLI) | payer OTHER ==
[2023-02-04 08:14] LABS: ALKALINE PHOSPHATASE 68 U/L (46-116); SGPT/ALT 11 U/L (10-49); TOTAL PROTEIN 6.8 gm/dL (6.0-8.0)
== END | disposition home or self-care (01) ==
LOC: LAB 07:32
PROVIDERS: ATTEND Internal Medicine Gastroenterology
DX: K76.0 Fatty (change of) liver, not elsewhere classified (principal)

== ENCOUNTER → 2023-03-12 | Outpatient (CLI) | payer OTHER | END | disposition home or self-care (01) | LOC: CT 02:18 | PROVIDERS: ATTEND Internal Medicine | DX: J44.9 Chronic obstructive pulmonary disease, unspecified (principal); R91.1 Solitary pulmonary nodule; Z87.891 Personal history of nicotine dependence; J98.11 Atelectasis ==

== ENCOUNTER 2023-05-11 17:40 | Emergency (ER) | payer SELFPAY ==
[~2023-05-11] VITALS: Wt 65.1 kg
[2023-05-11 18:01] LABS: BASO # 0.1 10*3/uL (0.0-0.1); BASO % 0.6 % (0.0-1.0); EOS # 0.1 10*3/uL (0.0-0.4); EOS % 0.8 % (1.0-4.0); HEMATOCRIT 38.5 % (37.0-47.0); LYMPH # 2.1 10*3/uL (1.3-4.4); LYMPH % 15.5 % (27.0-41.0); MEAN CORPUSCULAR HGB 31.9 pg (27.0-31.0); MEAN CORPUSCULAR HGB CONC 34.3 g/dl (33.0-37.0); MEAN PLATELET VOLUME 8.2 fl (9.6-12.3); MONO # 0.5 10*3/uL (0.1-1.0); MONO % 4.1 % (3.0-9.0); NEUT # 10.5 10*3/uL (2.3-7.9); NEUT % 78.7 % (47.0-73.0); PLATELET COUNT AUTOMATED 434 10*3/uL (130-400); RED BLOOD COUNT 4.14 10*6/uL (4.10-5.10); RED CELL DISTRI WIDTH 13.4 % (0-14.5); WHITE BLOOD COUNT 13.3 10*3/uL (4.8-10.8)
[2023-05-11 18:28] LABS: ALKALINE PHOSPHATASE 71 U/L (46-116); BUN 9 mg/dl (9-23); CHLORIDE 108 mmol/L (98-107); POTASSIUM 3.7 mmol/L (3.4-5.1); SGPT/ALT 24 U/L (5-49)
[2023-05-11] MEDS ORDERED: ANTIVERT25 M2 PO (18:51)
== END 2023-05-11 19:13 | disposition home or self-care (01) ==
LOC: ED 17:40
PROVIDERS: Emergency Medicine
DX: R42 Dizziness and giddiness (principal); R51.9 Headache, unspecified; R07.89 Other chest pain; J44.9 Chronic obstructive pulmonary disease, unspecified; F41.9 Anxiety disorder, unspecified; F32.A Depression, unspecified; M79.7 Fibromyalgia; Z98.890 Other specified postprocedural states; Z90.49 Acquired absence of other specified parts of digestive tract

== ENCOUNTER → 2023-06-02 | Outpatient (CLI) | payer OTHER ==
[~2023-06-02] MED LIST changes: +ANTIVERT25 M2 PO
== END | disposition home or self-care (01) ==
LOC: ORTHO 00:16
PROVIDERS: ATTEND Orthopaedic Surgery
DX: M17.11 Unilateral primary osteoarthritis, right knee (principal)

== ENCOUNTER → 2023-06-24 | Outpatient (CLI) | payer OTHER | END | disposition home or self-care (01) | LOC: RAD 11:11 | PROVIDERS: ATTEND Internal Medicine | DX: J18.9 Pneumonia, unspecified organism (principal); J44.1 Chronic obstructive pulmonary disease with (acute) exacerbation ==

== ENCOUNTER → 2023-07-23 | Outpatient (CLI) | payer OTHER | END | disposition home or self-care (01) | LOC: ORTHO 02:58 | PROVIDERS: ATTEND Orthopaedic Surgery | DX: M17.12 Unilateral primary osteoarthritis, left knee (principal) ==

== ENCOUNTER 2024-04-25 18:56 | Emergency (ER) | payer OTHER ==
[~2024-04-25] VITALS: Ht 165.1 cm; Wt 68.0 kg
[2024-04-25] MEDS ORDERED: Acetaminophen/Hydrocodone 5 MG/325 MG TABLET PO ONE (19:40)
== END 2024-04-25 20:53 | disposition home or self-care (01) ==
LOC: ED 18:56
DX: S96.912A Strain of unspecified muscle and tendon at ankle and foot level, left foot, initial encounter (principal); J44.9 Chronic obstructive pulmonary disease, unspecified; F41.9 Anxiety disorder, unspecified; F32.A Depression, unspecified; M79.7 Fibromyalgia; Z90.49 Acquired absence of other specified parts of digestive tract; Z98.890 Other specified postprocedural states; X58.XXXA Exposure to other specified factors, initial encounter; Y93.89 Activity, other specified; Y92.009 Unspecified place in unspecified non-institutional (private) residence as the place of occurrence of the external cause; Y99.8 Other external cause status

== ENCOUNTER → 2024-06-15 | Outpatient (CLI) | payer OTHER | END | disposition home or self-care (01) | LOC: LAB 08:38 | PROVIDERS: ATTEND Nurse Practitioner Women's Health | DX: N95.1 Menopausal and female climacteric states (principal) ==

== ENCOUNTER → 2024-07-27 | Outpatient (CLI) | payer OTHER | END | disposition home or self-care (01) | LOC: RAD 12:16 | PROVIDERS: ATTEND Orthopaedic Surgery | DX: M19.072 Primary osteoarthritis, left ankle and foot (principal); M84.375A Stress fracture, left foot, initial encounter for fracture ==

== ENCOUNTER → 2024-09-17 | Outpatient (CLI) | payer OTHER ==
[2024-09-17 15:01] LABS: BASO # 0.1 10*3/uL (0.0-0.1); BASO % 0.7 % (0.0-1.0); EOS # 0.1 10*3/uL (0.0-0.4); EOS % 1.3 % (1.0-4.0); HEMATOCRIT 39.7 % (37.0-47.0); MEAN CELL VOLUME 96.1 fl (81.0-99.0); MEAN CORPUSCULAR HGB 30.5 pg (27.0-31.0); MEAN CORPUSCULAR HGB CONC 31.7 g/dl (33.0-37.0); MEAN PLATELET VOLUME 8.8 fl (9.6-12.3); MONO # 0.5 10*3/uL (0.1-1.0); MONO % 7.2 % (3.0-9.0); NEUT # 4.7 10*3/uL (2.3-7.9); NEUT % 65.5 % (47.0-73.0); PLATELET COUNT AUTOMATED 291 10*3/uL (130-400); RED BLOOD COUNT 4.13 10*6/uL (4.10-5.10); RED CELL DISTRI WIDTH 13.2 % (0-14.5); WHITE BLOOD COUNT 7.1 10*3/uL (4.8-10.8)
[2024-09-17 15:38] LABS: ALKALINE PHOSPHATASE 69 U/L (46-116); BUN 10 mg/dl (9-23); CHLORIDE 108 mmol/L (98-107); POTASSIUM 3.9 mmol/L (3.4-5.1); SGPT/ALT 18 U/L (5-49); TOTAL PROTEIN 6.6 gm/dL (6.0-8.0)
== END | disposition home or self-care (01) ==
LOC: LAB 00:18 → ORTHO 00:18 → RAD 13:30 → ORTHO 13:30
PROVIDERS: Internal Medicine; ATTEND Orthopaedic Surgery
DX: Z13.820 Encounter for screening for osteoporosis (principal); M81.0 Age-related osteoporosis without current pathological fracture; M16.12 Unilateral primary osteoarthritis, left hip; M16.11 Unilateral primary osteoarthritis, right hip; R63.5 Abnormal weight gain; R68.89 Other general symptoms and signs; Z78.0 Asymptomatic menopausal state

== ENCOUNTER → 2024-09-20 | Outpatient (CLI) | payer OTHER | END | disposition home or self-care (01) | LOC: RAD 10:07 | PROVIDERS: ATTEND Internal Medicine | DX: J44.9 Chronic obstructive pulmonary disease, unspecified (principal); R05.9 Cough, unspecified; R06.02 Shortness of breath; J06.9 Acute upper respiratory infection, unspecified ==

== ENCOUNTER → 2024-11-22 | Outpatient (CLI) | payer OTHER | END | disposition home or self-care (01) | LOC: CT 11-20 11:00 | PROVIDERS: ATTEND Orthopaedic Surgery | DX: M17.0 Bilateral primary osteoarthritis of knee (principal) ==

== ENCOUNTER → 2024-11-26 | Outpatient (CLI) | payer OTHER | END | disposition home or self-care (01) | LOC: ORTHO 00:22 | PROVIDERS: ATTEND Orthopaedic Surgery | DX: M17.11 Unilateral primary osteoarthritis, right knee (principal); M25.561 Pain in right knee; M79.89 Other specified soft tissue disorders ==

== ENCOUNTER → 2025-01-13 | Outpatient (CLI) | payer OTHER ==
[~2025-01-13] MED LIST changes: +ALLERGY RELIEF10 M2 PO; +ASPIRIN ADULT L81 M2 PO; +ATORVASTATIN CA40 M1 PO; +AUVELITY ER 451 EACH PO; +BUSPAR15 MG PO; +FLONASE ALLERG9.9 ML NAS; +GABAPENTIN600 MG PO; +KLONOPIN1 M1 PO; +LIPITOR40 MG PO; +MECLIZINE HCL25 M2 PO; +MONTELUKAST SOD10 MG PO; +ONDANSETRON HYDR8 MG PO; +OXYCODONE-ACET1 EAC3 PO; +PREMPRO PO; +SPRAVATO NAS; +TRAZODONE100 MG PO; +TRELEGY ELLIPT1 EACH INH; +VENT7GM INH; +VENTOLIN 02.5 MG/3 M INH; +VILAZODONE HCL40 M1 PO; +VITAMIN D325 MCG PO; +VRAYLAR1.5 MG PO; -ZOFRAN4 MG PO; +ZYRTEC10 M2 PO; +[UNRECOGNIZED DRUG - OTHER] PO
== END | disposition home or self-care (01) ==
LOC: US 02:39
PROVIDERS: ATTEND Internal Medicine
DX: S81.802A Unspecified open wound, left lower leg, initial encounter (principal); M79.662 Pain in left lower leg; M79.661 Pain in right lower leg; M17.0 Bilateral primary osteoarthritis of knee; E55.9 Vitamin D deficiency, unspecified; R42 Dizziness and giddiness; G62.9 Polyneuropathy, unspecified; G20.A1 Parkinson's disease without dyskinesia, without mention of fluctuations; M79.89 Other specified soft tissue disorders; Z79.899 Other long term (current) drug therapy; Z86.718 Personal history of other venous thrombosis and embolism; Z87.891 Personal history of nicotine dependence

== ENCOUNTER → 2025-02-02 | Outpatient (CLI) | payer OTHER | END | disposition home or self-care (01) | LOC: ORTHO 02:28 | PROVIDERS: ATTEND Orthopaedic Surgery | DX: Z47.1 Aftercare following joint replacement surgery (principal) ==

== ENCOUNTER → 2025-02-16 | Outpatient (CLI) | payer OTHER | END | disposition home or self-care (01) | LOC: ORTHO 01:26 | PROVIDERS: ATTEND Orthopaedic Surgery | DX: S82.51XA Displaced fracture of medial malleolus of right tibia, initial encounter for closed fracture (principal); M25.471 Effusion, right ankle; M25.571 Pain in right ankle and joints of right foot; X58.XXXA Exposure to other specified factors, initial encounter; Y93.89 Activity, other specified; Y92.89 Other specified places as the place of occurrence of the external cause; Y99.8 Other external cause status ==

== ENCOUNTER → 2025-03-02 | Outpatient (CLI) | payer OTHER | END | disposition home or self-care (01) | LOC: ORTHO 02:28 | PROVIDERS: ATTEND Orthopaedic Surgery | DX: Z47.1 Aftercare following joint replacement surgery (principal); M25.462 Effusion, left knee; Z96.652 Presence of left artificial knee joint ==

== ENCOUNTER → 2025-03-22 | Outpatient (CLI) | payer OTHER | LOC: CT 09:00 | PROVIDERS: ATTEND Family Medicine | DX: Z12.2 Encounter for screening for malignant neoplasm of respiratory organs (principal); Z87.891 Personal history of nicotine dependence; J43.9 Emphysema, unspecified; R91.8 Other nonspecific abnormal finding of lung field; I25.10 Atherosclerotic heart disease of native coronary artery without angina pectoris ==

== ENCOUNTER → 2025-04-15 | Outpatient (CLI) | payer OTHER | END | disposition home or self-care (01) | LOC: ORTHO 00:13 | PROVIDERS: ATTEND Orthopaedic Surgery | DX: Z47.1 Aftercare following joint replacement surgery (principal); M85.88 Other specified disorders of bone density and structure, other site ==

== ENCOUNTER → 2025-05-26 | Outpatient (CLI) | payer OTHER ==
[~2025-05-26] MED LIST changes: +IOHEXOL 300 MG/ML 100 ML VIAL IV ONE; +IOHEXOL 300 MG/ML 100 ML VIAL ONE
== END | disposition home or self-care (01) ==
LOC: CT 01:31
PROVIDERS: ATTEND Family Medicine
DX: K76.0 Fatty (change of) liver, not elsewhere classified (principal); R16.0 Hepatomegaly, not elsewhere classified; R10.9 Unspecified abdominal pain; M47.819 Spondylosis without myelopathy or radiculopathy, site unspecified